=== PATIENT | female | born 1975 | race Caucasian/White ===

== ENCOUNTER → 2018-01-17 | Outpatient (CLI) | payer OTHER ==
[~2018-01-17] MED LIST: CEPHALEXIN500 M1 PO; CIPRO HC OTIC S10 ML OT; NO HOME MEDICATIONS; NORCO 325 MG-51 TAB PO; VALIUM5 MG PO
== END ==
LOC: COL.RAD 14:40
DX: S56.417A Strain of extensor muscle, fascia and tendon of right little finger at forearm level, initial encounter (principal)

== ENCOUNTER 2019-03-12 18:21 | Emergency (ER) | payer OTHER ==
[~2019-03-12] VITALS: Ht 160 cm; Wt 60.0 kg
[~2019-03-12 18:21] MED LIST changes: +MVI; +PHENERGAN 25 TA25 MG PO
[2019-03-12] MEDS ORDERED: CEPHALEXIN500 M1 PO (21:49)
[2019-03-12] MEDS ORDERED: POLYMYXIN B/TRIMETH OU (21:49)
[2019-03-12 22:12] VITALS: BP 126/76; PULSE 78; TEMP 98.4
== END 2019-03-12 22:12 | disposition home or self-care (01) ==
LOC: COL.ER 18:21
DX: L03.031 Cellulitis of right toe (principal); H57.9 Unspecified disorder of eye and adnexa

== ENCOUNTER 2019-12-24 19:32 | Emergency (ER) | payer OTHER ==
[~2019-12-24] VITALS: Ht 167.6 cm; Wt 59.1 kg
[~2019-12-24 19:32] MED LIST changes: +POLYMYXIN B/TRIMETH OU
[2019-12-24 19:41] VITALS: BP 114/78; TEMP 99.1
[2019-12-24] MEDS ORDERED: NORCO 325 MG-7.1 TAB PO (20:12)
[2019-12-24 20:54] VITALS: PULSE 89
== END 2019-12-24 20:54 | disposition home or self-care (01) ==
LOC: COL.ER 19:32
DX: K02.9 Dental caries, unspecified (principal)
CPT/HCPCS: J1885

== ENCOUNTER → 2020-11-28 | Outpatient (CLI) | payer OTHER ==
[~2020-11-28] MED LIST changes: +NAPROSYN500 MG PO; +NORCO 325 MG-7.1 TAB PO; +SEPTRA DS 8001 TAB PO; +VOLTAREN 50MG T50 MG PO
== END ==
LOC: COL.RAD 10:53
DX: J32.0 Chronic maxillary sinusitis (principal); J32.2 Chronic ethmoidal sinusitis

== ENCOUNTER 2020-11-30 18:39 | Emergency (ER) | payer OTHER ==
[~2020-11-30] VITALS: Ht 160 cm; Wt 62.3 kg
[~2020-11-30 18:39] MED LIST changes: -NAPROSYN500 MG PO; -SEPTRA DS 8001 TAB PO; -VOLTAREN 50MG T50 MG PO
[2020-11-30 18:45] VITALS: TEMP 98.7
[2020-11-30] MEDS ORDERED: NAPROSYN500 MG PO ×2 (19:17)
[2020-11-30] MEDS ORDERED: SEPTRA DS 8001 TAB PO (19:19)
[2020-11-30 19:24] VITALS: BP 114/70; PULSE 78
[2020-11-30] MEDS ORDERED: VOLTAREN 50MG T50 MG PO (19:31)
== END 2020-11-30 19:25 | disposition home or self-care (01) ==
LOC: COL.ER 18:39
DX: H00.035 Abscess of left lower eyelid (principal)

== ENCOUNTER 2021-01-12 15:24 | Emergency (ER) | payer OTHER ==
[~2021-01-12] VITALS: Ht 160 cm; Wt 59.1 kg
[~2021-01-12 15:24] MED LIST changes: +NAPROSYN500 MG PO; +SEPTRA DS 8001 TAB PO; +VOLTAREN 50MG T50 MG PO
[2021-01-12 16:26] VITALS: TEMP 98.5
[2021-01-12 18:33] LABS: BASO % 0.2 % (0.0-2.0); GRAN # 11.3 (1.4-6.5); GRAN % 85.9 % (42.2-75.2); HEMATOCRIT 37.6 % (37.0-47.0); HEMOGLOBIN 12.2 g/dl (12.5-16.0); LYMPH # 1.3 (1.2-3.4); LYMPH % 9.7 % (20.0-51.0); MEAN CELL VOLUME 89 fl (80.0-100.0); MEAN CORPUSCULAR HEMOGLOBIN 29 pg (27.0-31.0); MEAN CORPUSCULAR HGB CONC 32 g/dl (33.0-37.0); MONO # 0.5 (0.1-0.6); MONO % 3.8 % (1.7-9.3); PLATELET COUNT 214 K/mm3 (130-400); RED BLOOD COUNT 4.21 M/mm3 (4.10-5.30); REDCELL DISTRIBUTION WIDTH-CV 13.1 % (11.5-14.5)
[2021-01-12 18:42] LABS: ALBUMIN 4.2 gm/dL (3.5-5.0); BILIRUBIN,TOTAL 1.2 mg/dL (0.0-1.0); CALCIUM 9.2 mg/dL (8.4-10.2); CREATININE, serum 0.54 (0.52-1.25); POTASSIUM 4.2 mmol/L (3.4-5.0); TOTAL PROTEIN 7.5 gm/dL (6.4-8.2)
[2021-01-12 19:40] LABS: PH 8 (5-8); URINE APPEARANCE Clear; URINE BACTERIA Rare /hpf; URINE BILIRUBIN Negative (NEGATIVE); URINE BLOOD Negative (NEGATIVE); URINE COLOR Straw; URINE GLUCOSE Negative (NEGATIVE); URINE KETONE Negative (NEGATIVE); URINE LEUKOCYTE ESTERASE Negative (NEGATIVE); URINE NITRATE Negative (NEGATIVE); URINE PROTEIN(semi-quant) Negative (NEGATIVE); URINE RBC 0-2 /hpf; URINE UROBILINOGEN Negative (NEGATIVE); URINE WBC 0-2 /hpf
[2021-01-12 19:42] LABS: COLLECTION METHOD CLEAN CATCH
[2021-01-12 21:10] VITALS: BP 109/65; PULSE 73
== END 2021-01-12 21:10 | disposition home or self-care (01) ==
LOC: COL.ER 15:24
PROVIDERS: Nurse Practitioner Primary Care
DX: S20.222A Contusion of left back wall of thorax, initial encounter (principal); W22.8XXA Striking against or struck by other objects, initial encounter
CPT/HCPCS: J2270; Q9967

== ENCOUNTER → 2023-04-11 | Outpatient (CLI) | payer OTHER | LOC: COL.RAD 08:57 | DX: R10.11 Right upper quadrant pain (principal); R93.5 Abnormal findings on diagnostic imaging of other abdominal regions, including retroperitoneum | CPT/HCPCS: A9537-JZ; J2805 ==